=== PATIENT | male | born 1945 | race Caucasian/White ===

== ENCOUNTER 2016-03-28 11:14 | Day surgery (SDC) | payer MEDICARE, OTHER ==
[~2016-03-28] VITALS: Ht 177.8 cm; Wt 96.3 kg
[2016-03-28] VITALS (7 sets, daily range): BP systolic 120–141; BP diastolic 64–77; PULSE 44–78; RESP 11–20; O2SAT 93–97
[~2016-03-28 11:14] MED LIST: ASPI-973 PO; HYDR25TA4 PO; LIP40 PO; LISI40TA PO; METO25TA6 PO; OMEP20TA86 PO; TRAM50TA2 PO; levoFLOXacin Inj 500 MG in IV Premix 1 EACH IV ONE
[2016-03-28] MEDS ORDERED: Ondansetron 2 mg/mL 2 mL Inj ONE (11:15)
[2016-03-28] MEDS ORDERED: Propofol 10,000 mCg/mL 20 mL Inj ONE (11:15)
[2016-03-28] MEDS ORDERED: Dexamethasone 4 mg/mL Inj ONE (11:15)
[2016-03-28] MEDS ORDERED: MetoCLOpramide 5 mg/mL 2 mL Inj ONE (11:15)
[2016-03-28] MEDS ORDERED: fentaNYL-PF 50 mCg/mL 2 mL Inj ONE (11:15)
[2016-03-28] MEDS ORDERED: EPHEDrine/NS 5 mg/mL 5 mL Syringe ONE (11:15)
[2016-03-28] MEDS ORDERED: Glycopyrrolate 0.2 mg/mL 5 mL Inj ONE (11:15)
[2016-03-28] MEDS: Lactated Ringer's 1,000 ML IV SCH ×2 (11:38→13:03)
[2016-03-28] MEDS ORDERED: levoFLOXacin 500 mg/100 mL D5W Premix IV ONE (11:52)
[2016-03-28] MEDS ORDERED: Belladonna Alk-Opium 60 mg Rectal Suppository RECTAL ONE (13:23)
[2016-03-28] MEDS ORDERED: Lactated Ringer's 500 ML IV PRN (13:26)
[2016-03-28] MEDS ORDERED: Lactated Ringer's 1,000 ML IV SCH (13:26)
--- NOTE | 2016-03-28 13:26 | PCM.HPANE ---
Patient Data Surgeon Admitting Provider: Attending Provider:Rosy Sanchez MD Primary Care Physician:Dagoberto Bahena Other Provider: Reason for Visit Bladder Tumor Ht/WT & BMI Height (Feet): 5 Height (Inches): 11 Weight (Kilograms): 98 Body Mass Index 30.00 Allergies Coded Allergies: pentazocine (Verified Allergy, Unknown, nausea, 07/06/15) Past Anesthesia History Anesthesia History: Denies:: Anesthesia Reactions, Fam Anesthesia Reaction Diabetes History Hx Diabetes?: No MRSA MRSA: No Medications Blood Thinner: Aspirin Hypertension Medication: Yes Home Meds Incl Beta Kelli: Yes Reported Medications Tramadol 50 Mg Qdqevw33 Mg PO HS PRN For Pain Ref 0 03/26/16 Lisinopril 40 Mg Zehwgb44 Mg PO DAILY 30 Days Ref 0 03/20/16 Omeprazole 20 Mg Tablet.dr20 Mg PO DAILY 07/06/15 Metoprolol Tartrate 25 Mg Mxletq73.5 Mg PO BID 30 Days Ref 0 07/06/15 Hydrochlorothiazide 25 Mg Ratusq21 Mg PO DAILY 30 Days Ref 0 07/06/15 Atorvastatin (Lipitor)40 Mg Obmnpm59 Mg PO DAILY Ref 0 07/06/15 Aspirin 81 Mg Kltmcs91 Mg PO DAILY Ref 0 07/06/15 History History of ENT Problems?: No HEENT History: Denies:: Cataracts Glaucoma Hearing Problem Hx of Heart Problems?: Yes Cardiovascular History: Positive for:: Hypertension Denies:: AICD Heart Murmur Irregular Heartbeat Pacemaker Hx of Respiratory Problem?: No Respiratory History: Denies:: Asthma COPD Emphysema Oxygen Administration Pneumonia Tuberculosis Use of C-PAP Machine (sleep study done, pt not using CPAP at this time) Hx Neurologic Problems?: No Neurological History: Denies:: CVA Headaches Multiple Sclerosis Parkinson's Disease Seizures Hx of GI Problems?: No Gastrointestinal History: Denies:: Cirrhosis Gall Bladder Disease Gastroesphageal Reflux Gastrointestinal Bleeding Heartburn Hepatitis Hiatal Hernia Hx of Problems?: Yes Genitourinary History: Denies:: Urinary Tract Infection Other Pertinent History: hx of bladder tumor- current admission problem Male Hx: Denies:: Prostate Problems Skin History: Denies:: History Skin Disorders? Pressure Ulcers Hx Musculoskeletal Problems?: Yes Musculoskeletal History: Positive for:: Musculoskeletal Trauma (hx of wrist fusion) Hx of Psycho/Social Problems?: No Psycho Social History: Denies:: Anxiety Hx Depression Hx Surgeries?: Yes (tonsil, right wrist fusion, TURBT) Hx Any Other Health Problems?: Yes Other History: Denies:: Cancer Thyroid Disease Hx Diabetes: No Hx Alcohol Use: NoHx Substance Use: No Smoking Status: Former Smoker Have You Smoked inLast 12 mo: No Stop/Bang S-Snoring: Do You Snore Loudly: Yes T-Tired: feel tired, fatigued: Yes O-Obsered: Observed not breath: No P-Blood Pressure: treated: Yes B- Body Mass Index > 35 kg/m2: No A- Age over 50: Yes N- Neck Large Circumference: No G- Gender Male: Yes KARTIK Total Score: 5 Risk Assessment Category Category 1A: Patient has history of documented sleep apnea, and HAS NOT received any narcotic, sedative or anesthesia administration during this stay. Category 1B: Patient has history of documented sleep apnea, and HAS received any narcotic , sedative or anesthesia administration during this stay Category 2: Patient has SUSPECTED Obstructive Sleep Apnea, and HAS received any narcotic , sedative or anesthesia administration during this stay. Category 3: Patient has SUSPECTED Obstructive Sleep Apnea and HAS NOT received narcotic, sedative or anesthesia administration during this stay. Category 4: Outpatient in Procedural Areas with known sleep apnea or who screen positive for High Risk via the STOP/BANG questionnaire. Exam Exam General Appearance: Alert, Oriented X3, Cooperative, No Acute Distress HEENT/AIRWAY: MP 2 Lungs: Clear to Auscultation, Normal Air Movement Heart: Exam Unremarkable, Regular Rate/Rhythm, No Murmurs/Rubs/Gallops Meds/Labs/Diagnostics Admission Meds Current Medications Lactated Ringer's (Lr) 1,000 ml @ 120 mls/hr Q8H20M IV Last administered on t 11:38; Start 03/28/16 at 05:00; Stop 03/28/16 at 13:19 Plan Impression Patient chart reviewed, patient interviewed and anesthestic plan with risks, benefits, and alternatives discussed, and informed consent obtained. NPO Status: 07/05/15 AT 1930 ASA Physical Status: ASA2 Mod Systemic Disease Anesthetic Plan: GA Bene/Risks/Altern/Consents: Yes HP Complete Prior to Induction: Yes Sky Moore MD Mar 28, 2016 11:55
[2016-03-28] MEDS ORDERED: Phenylephrine 10,000 mCg/mL Inj IVPUSH PRN (13:30)
[2016-03-28] MEDS ORDERED: fentaNYL-PF 50 mCg/mL 2 mL Inj IVPUSH PRN (13:30)
[2016-03-28] MEDS ORDERED: Labetalol 5 mg/mL 4 mL Inj IV PRN (13:30)
[2016-03-28] MEDS ORDERED: Ondansetron 2 mg/mL 2 mL Inj IVPUSH PRN (13:30)
[2016-03-28] MEDS ORDERED: Atropine 0.4 mg/mL Inj IVPUSH PRN (13:30)
[2016-03-28] MEDS ORDERED: EPHEDrine Sulfate 50 mg/mL Inj IVPUSH PRN (13:30)
[2016-03-28] MEDS ORDERED: hydrALAZINE 20 mg/mL Inj IVPUSH PRN (13:30)
[2016-03-28] MEDS ORDERED: MetoCLOpramide 5 mg/mL 2 mL Inj IVPUSH PRN (13:30)
[2016-03-28] MEDS ORDERED: Lidocaine 2% 5 mL Urojet Topical Jelly Syringe MUC_MEMBRM ONE (13:34)
[2016-03-28] MEDS ORDERED: Ondansetron 8 mg ODT Tablet PO PRN (13:50)
[2016-03-28] MEDS ORDERED: HYDROcodone-APAP 5-325 mg Tablet PO PRN (13:50)
[2016-03-28] MEDS ORDERED: Phenazopyridine 97.5 mg Tablet PO PRN (13:50)
--- NOTE | 2016-03-28 14:51 | PCM.ANEP1 ---
Post Anesthesia Phase 1 PACU Phase 1 Assessment Vital Signs Vital Signs Date Time Temp Pulse Resp B/P Pulse Ox O2 Delivery O2 Flow Rate FiO2 03/28/16 14:24 36.3 60 16 141/75 95 Room Air 03/28/16 14:15 63 20 124/77 94 Room Air 03/28/16 14:10 36 62 11 133/70 93 Room Air 03/28/16 14:00 71 16 120/73 93 Room Air 03/28/16 13:55 72 15 133/64 93 Room Air 03/28/16 13:51 36 78 18 125/69 95 Room Air 03/28/16 11:57 36.5 44 18 130/68 97 Room Air Anesthetic Administered: GA Level of Alertness: Awake, talking MORALES's with Equal Strength: Yes Pain: No Nausea or Vomiting: No Oxygen Delivery: Simple Mask Lungs: Clear to Auscultation, Normal Air Movement Dermatome Level: Full Sensation Sky Moore MD Mar 28, 2016 14:51
--- NOTE | 2016-03-28 14:51 | PCM.ANEP2 ---
Post Anesthesia Evaluation ASA/CMS Post Anesthesia VS in Patient's Normal Range?: Yes Resp Stable; Airway Patent?: Yes CV Function & Hydration Stable: Yes Mental Status Recovered?: Yes Pain control Satisfactory?: Yes N/V Control Satisfactory?: Yes Sky Moore MD Mar 28, 2016 14:51
--- NOTE | 2016-03-29 13:57 | OP ---
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 SURGEON: Rosy Sanchez MD. INDICATIONS: The patient is a 70-year-old gentleman with a history of a large superficial bladder tumor on left side of his body, status post resection circa nine months prior with small recurrence at 1 o'clock at the bladder neck noted. Papillary tumor appeared superficial. Unable to be treated in clinic. This was noted at his surveillance cystoscopy. He is set up for resection of this. PROCEDURE IN DETAIL: After appropriate informed consent was obtained, patient was brought to the operating room. Received IV antibiotics. Prior to the onset of procedure, his preop urine culture was negative. SCD were placed. Adequate general anesthesia induced. He was carefully placed in dorsal lithotomy position. All pressure points carefully padded. Cleaned, prepped and draped in the usual sterile fashion. Rigid scope was introduced into the patient's bladder, which was surveyed in systematic fashion. We was surveyed with both the 30 and 70-degree lenses. We were able to see this lesion at 1 o'clock near the bladder neck with the 70-degree lens and see it less well with the 30, although it would have been conducive size weller to be resected with a cold cup biopsy. We could not reach it due to location. Thus, we entered with the 27-[place] resectoscope set under direct visual guidance with a visual obturator and then, we were able to resect using the cutting loop this mass- ca 1cm in size. This was taken, and a deeper bite was taken. Then, cautery was used for hemostasis. There were no other tumors seen in the patient's bladder. The specimen was retrieved and handed off for permanent pathology. The patient tolerated the procedure very well. Bladder was emptied. His urine was completely clear. He was awakened and taken in stable condition to the postanesthesia care unit. JOSE
--- NOTE | 2016-03-30 11:35 | PATH ---
SURGICAL PATHOLOGY Attending Physician:Rosy Sanchez MD CASE STATUS: Signed Out PATIENT NAME: MEET ASHBY I. PID: [id number] : 1945 DATE COLLECTED:03/28/2016 22:53 SPECIMEN: Bladder Neck CLINICAL HISTORY: BLADDER TUMOR H/O TCC SEE REQ 1). ANTERIOR BLADDER NECK FINAL DIAGNOSIS: 1.ANTERIOR URINARY BLADDER NECK BIOPSY: PAPILLARY UROTHELIAL CARCINOMA, HIGH-GRADE WITH NO EVIDENCE OF INVASION OF LAMINA PROPRIA. MUSCULARIS PROPRIA NOT IDENTIFIED. ICD10 code C67.5 NOTE: As part of a routine quality audit representative, Dr. Goldie Mancuso has also reviewed this case and agrees with the diagnosis. GROSS DESCRIPTION: The specimen is received in one formalin filled container labeled with the patient's name, sublabeled "anterior bladder neck" and consists of 3 johnson-yanez friable portions of tissue which aggregate to 0.6 x 0.6 x 0.4 CM. The specimen is entirely submitted in one cassette. 03/28/2016 [facility] MICRO DESCRIPTION: See diagnosis. ICD-9 CODES: CPT CODES: 1: 07652 Electronically Signed Out Meet Ventura MD [facility] Pathology [facility] [address], [place] [address] Technical component performed at [facility], [facility] [address], [place], [address]
== END 2016-03-28 23:59 | disposition home or self-care (01) ==
LOC: SAS 11:14
PROVIDERS: ATTEND Urology
DX: C67.5 Malignant neoplasm of bladder neck (principal); I10 Essential (primary) hypertension; E78.5 Hyperlipidemia, unspecified; I95.9 Hypotension, unspecified; E66.9 Obesity, unspecified; Z79.82 Long term (current) use of aspirin; Z85.51 Personal history of malignant neoplasm of bladder; Z68.30 Body mass index [BMI] 30.0-30.9, adult; Z87.891 Personal history of nicotine dependence
CPT/HCPCS: 52234; 88305; J1100; J2405; J2765; J7120

== ENCOUNTER 2016-09-04 14:20 | Emergency (ER) | payer MEDICARE ==
[~2016-09-04] VITALS: Ht 177.8 cm; Wt 90.0 kg
[~2016-09-04 14:20] MED LIST changes: -levoFLOXacin Inj 500 MG in IV Premix 1 EACH IV ONE
[2016-09-04 14:29] VITALS: BP 164/57; PULSE 76; RESP 15; O2SAT 100
[2016-09-04 14:52] LABS: BASOPHILS % (AUTO) 0.4 % (0-3); EOSINOPHILS % (AUTO) 0.6 % (0-5); MONOCYTES % (AUTO) 9.7 % (4-12); Mean Corpuscular Volume 85.8 fL (81-100); NEUTROPHILS % (AUTO) 64.8 % (40-74); Platelet Count 242 bil/L (150-400)
[2016-09-04] MEDS ORDERED: LidocaineVisc 2%:Antacid 1:1 10 mL Syringe PO ONE (15:10)
--- NOTE | 2016-09-04 15:10 | ED.REPORT ---
HPI-General Illness Date of Service Sep 04, 2016 ED Provider: Efrain Greer MD A 71 year old male with a history of hypertension, anxiety, GERD and a bladder tumor s/p resection (03/2016) presents to the ED with generalized malaise that began 4 days ago. He reports recent episodes of hypotension, heart palpitations , decreased appetite, subjective fever, and pain under his left shoulder. Current medication list includes 40 mg of Lisinopril and 20 mg of Omeprazole. Patient took 20 mg of Lisinopril this morning. He began taking Metoprol but recently discontinued the medication due to an adverse reaction that exacerbated his anxiety. He reports that his symptoms feel similar to episodes of exacerbated GERD. He denies any recent fever, chills,cough, abdominal pain, or chest pain. Nursing Notes Stated Complaint: FEELING BAD, RAPID HEART RATE, HIGH BLOOD PRESSURE Chief Complaint: General Complaint Nursing Notes Reviewed: Yes Allergies: Coded Allergies: pentazocine (Verified Allergy, Unknown, nausea, 07/06/15) Scheduled Aspirin (Aspirin) 81 Mg Tablet 81 MG PO DAILY Atorvastatin (Lipitor) 40 Mg Tablet 40 MG PO DAILY Hydrochlorothiazide (Hydrochlorothiazide) 25 Mg Tablet 25 MG PO DAILY Lisinopril (Lisinopril) 40 Mg Tablet 40 MG PO DAILY Omeprazole (Omeprazole) 20 Mg Tablet.dr 20 MG PO DAILY Scheduled PRN Tramadol (Tramadol) 50 Mg Tablet 50 MG PO HS PRN PRN For Pain General Time Seen by MD: 15:08 Chief Complaint Other (General Malaise) Hx Obtained From: Patient Arrived By: Walk-in Sudden in Onset?: No Onset Occurred: 4 days ago Symptom Duration: Since onset Location: : Shoulder left Quality: Painful Radiation: : Does not radiate Severity: Current: Moderate Severity: Maximum: Moderate Associated with: Denies: Abdominal pain, Chest pain, Cough, Fever Pertinent Negative: Pt denies other symptoms Recent Healthcare: No recent hospitalization, Recent doctor visit, Recent hospitalization Past Medical History Past Medical History Hypertesion Bladder tumor GERD Anxiety Past Surgical History Transurethral resection of bladder tumor with cautery- 1cm size Smoking History Former Smoker Social History Other Social History: Good social support, Local resident Ambulatory Status Independent Review of Systems Decreased appetite Episodes of hypotension Full Review of Systems Constitutional: Reports: Malaise, Denies: Chills, Fever Cardiovascular: Reports: Palpitations, Denies: Chest pain GI: Denies: Abdominal pain Musculoskeletal: Reports: Extremity swelling (Left shoulder pain ) Complete sys rev & neg: except as marked. Physical Exam Vital Signs Vital Signs Date Time Temp Pulse Resp B/P Pulse Ox O2 Delivery O2 Flow Rate FiO2 09/04/16 16:08 80 16 147/65 97 Room Air 09/04/16 14:29 36.7 76 15 164/57 100 Room Air Initial VS: Reviewed Neck: Supple, Non-tender, Full range of motion Extremities: Vascular intact, Neuro intact, No swelling, No tenderness Skin: Warm, Dry, No cyanosis Neurologic: Alert, Oriented, Nonfocal Psychiatric: Mood/affect normal, Behavior normal, Normal thought content General/Constitutional: Awake, Alert, No acute distress, Well appearing, Well developed Head / Eyes: Atraumatic, Normocephalic, PERRL Respiratory / Chest: Atraumatic, Breath sounds NL, Breath sounds = bilat, No respiratory distress Cardiovascular: Heart rate NL, Regular rhythm, Heart sounds NL, No murmurs Abdomen: Atraumatic, Soft, Non-tender, No guarding, No rebound CARDIO: Lower extremity edema Interpretation & Diagnostics Lab Results Interpretation Result Diagram: 09/04/16 1440 09/04/16 1440 Test 09/04/16 14:40 White Blood Count 10.1th/mm3 (3.8-10.1) Red Blood Count 4.64mil/mm3 (4.40-5.80) Hemoglobin 13.9g/dL (13.8-17.2) Hematocrit 39.8% (41.0-50.0) Mean Corpuscular Volume 85.8fL (81-100) Mean Corpuscular Hemoglobin 30.0pg (27.0-35.0) Mean Corpuscular Hemoglobin Concent 34.9% (32.0-37.0) Red Cell Distribution Width 13.1% (12.3-15.4) Platelet Count 242bil/L (150-400) Neutrophils (%) (Auto) 64.8% (40-74) Lymphocytes (%) (Auto) 24.4% (14-46) Monocytes (%) (Auto) 9.7% (4-12) Eosinophils (%) (Auto) 0.6% (0-5) Basophils (%) (Auto) 0.4% (0-3) Sodium Level 135mEq/L (134-144) Potassium Level 3.7mEq/L (3.5-5.2) Chloride Level 98mEq/L (97-108) Carbon Dioxide Level 18mmol/L (18-29) Blood Urea Nitrogen 28mg/dL (8-27) Creatinine 1.29mg/dL (0.76-1.27) Estimat Glomerular Filtration Rate 59mL/min (>59) Glucose Level 123mg/dL (60-99) Calcium Level 10.0mg/dL (8.5-10.1) Magnesium Level 1.6mg/dL (1.6-2.6) Total Bilirubin 0.8mg/dL (0.0-1.2) Aspartate Amino Transf (AST/SGOT) 17U/L (0-50) Alanine Aminotransferase (ALT/SGPT) 15U/L (0-44) Alkaline Phosphatase 79U/L (25-160) Troponin T < 0.010ug/L (0.0-0.011) Total Protein 7.2g/dL (6.4-8.4) Albumin 4.0g/dL (3.4-5.0) Hold Shepherd Top Tube Received (Received) ECG Interpretation ECG Interpretation: Sinus Rhythm Rate 68 No STT changes Q waves unchanged from prior Time: 15:42 Interpreted by: ED physician X-Ray Chest Interpretation Chest Xray Interpretation: IMPRESSION: Negative chest. No acute cardiopulmonary process is evident. Dictated by: Tristin Martinez M.D. on 09/04/2016 at 14:08 Interpretation / Wet Read by: Interpret - Radiologist Re-Eval/Medical Decision Med Decision/Clinical Course 71-year-old male history of GERD and hypertension presenting complaining of high blood pressure and acid reflux. His blood pressure is stable here. He has no headache, chest pain, difficulty breathing. His labs are stable. Does have mild epigastric tenderness. This resolved with GI cocktail. He is on omeprazole. We will increase this dose. Recommend he continue his blood pressure medications and follow-up with primary doctor for blood pressure recheck 1-2 days. Return precautions given. Time of Eval: 14:46 Patient Status: Condition improved Re-Evaluation/Progress Note: Patient is rechecked. He is informed of his results and diagnosis. All questions about the intended treatment plan are addressed. He understands and agrees with the plan. Counseled Regarding: Diagnosis, Lab results, Need for follow-up, When/why to return to ED Discharge & Departure Primary Impression: GERD (gastroesophageal reflux disease) Esophagitis presence: without esophagitis Qualified Code: K21.9 - Gastro- esophageal reflux disease without esophagitis Additional Impression: Hypertension Hypertension type: unspecified secondary hypertension Qualified Code: I15.9 - Secondary hypertension, unspecified Disposition: Home Discharge Condition All VS Reviewed: Yes Condition: Improved Patient Instructions: Gastroesophageal Reflux Disease (ED), Hypertension (ED) Additional Instructions: Thank you for trusting us with your care this morning. Your emergency department results including lab work, chest X-ray and EKG are reassuring that there is no dangerous cause for concern at this time. Please take continue to take your diuretic and take 20 mg of Lisinopril per day. Increase omeprazole to 40 mg per day or add Ranidine if the omeprazole does not improve your symptoms. Schedule a follow up appointment with your primary care physician in the next 2- 3 for a recheck. I recommend that you record your blood pressure in a log until you are able to follow up with your primary care physician. Please return to the emergency department if you begin to develop any new or worsening conditions including any chest pain, shortness of breath, numbness/ tingling, weakness, high fevers or shaking chills. Referrals: Dagoberto Bahena (PCP) [facility] (Family) Yamilet Attestation Portions of this note were transcribed by Rod Figueroa. I, Dr. Greer personally performed the history, physical exam and medical decision-making; I reviewed and confirmed the accuracy of the information in the transcribed note. Signed by: Yamilet Auguste, 09/04/16 1723. copies to: Dagoberto Bahena Ben M MD Sep 04, 2016 15:10 ROD FIGUEROA Sep 04, 2016 15:46
--- NOTE | 2016-09-04 15:14 | DRSVH ---
PROCEDURE: X-RAY CHEST ONE VIEW, PORTABLE ([id number]) INDICATIONS: CHEST PAIN TECHNIQUE: One view of the chest was acquired. COMPARISON: None. FINDINGS: Surgical changes and devices: None. Lungs and pleura: No pleural effusions or pneumothorax. Lungs are clear. Mediastinum: Mediastinal contours appear normal. Heart size is normal. There is aortic atheroscler osis. Bones and chest wall: No suspicious bony lesions. Overlying soft tissues appear unremarkable. IMPRESSION: Negative chest. No acute cardiopulmonary process is evident. Dictated by: Tristin Martinez M.D. on 09/04/2016 at 14:08 Approved by: Tristin Martinez M.D. on 09/04/2016 at 14:13
[2016-09-04 15:26] LABS: TROPONIN T < 0.010 ug/L (0.0-0.011)
[2016-09-04 15:32] LABS: Magnesium 1.6 mg/dL (1.6-2.6)
[2016-09-04 16:08] VITALS: BP 147/65; PULSE 80; RESP 16; O2SAT 97
== END 2016-09-04 16:16 | disposition home or self-care (01) ==
LOC: SED 14:20
DX: K21.9 Gastro-esophageal reflux disease without esophagitis (principal); I15.9 Secondary hypertension, unspecified; R00.2 Palpitations; I10 Essential (primary) hypertension; F41.9 Anxiety disorder, unspecified; Z79.82 Long term (current) use of aspirin; Z87.891 Personal history of nicotine dependence; Z88.5 Allergy status to narcotic agent